=== PATIENT | male | born 1945 | race Caucasian/White ===

== ENCOUNTER 2023-11-09 11:36 | Day surgery (SDC) | payer OTHER, SELFPAY ==
--- NOTE | 2023-11-08 22:18 | W.PREOPHP ---
Assessment and Plan Assessment and plan (1) Posterior subcapsular age-related cataract, right eye: Status: Acute Assessment and plan: Assessment: Visually significant cataract, right eye. Plan: Cataract extraction with intraocular lens implant right eye (2) Nuclear age-related cataract, right eye: Status: Acute Assessment and plan: Assessment: Visually significant cataract, right eye. Plan: Cataract extraction with intraocular lens implant right eye History of Present Illness History of Present Illness Chief Complaint: Progressive decreased vision, both eyes Narrative: The patient is a 77-year-old male referred by the [facility] with bilateral cataracts, right eye worse than left. He notes progressive decreased vision in both eyes at both distance and near. He no longer drives because he feels he cannot see well enough. He was previously scheduled to have cataract surgery in [place], but this was too far to travel. 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 Review of Systems All systems reviewed & are unremarkable except as noted in HPI and below PFSH All Active Problems Posterior subcapsular age-related cataract, right eye (Acute) Nuclear age-related cataract, right eye (Acute) Medical History COPD (chronic obstructive pulmonary disease) Gout HTN (hypertension) Social History Smoking/Tobacco Use Status: Former Tobacco Use Smoking risk assessment performed?: Yes Alcohol Intake: current Alcohol type: beer Drug use: Never Substance use type: does not use Housing: house Do you feel safe at home: Yes (lives alone) Do you feel safe in your relationship?: Yes Meds Allergies and Home Medications Allergies Allergy/AdvReac Type Severity Reaction Status Date / Time No Known Allergies Allergy Verified 11/09/23 13:03 Home Medications Medication Instructions Recorded Confirmed Type albuterol sulfate 90 mcg/actuation 2 inh inhalation .q4-q6 PRN 11/08/23 11/09/23 History aerosol inhaler colchicine 0.6 mg capsule 0.6 mg PO DAILY 11/08/23 11/09/23 History fluticasone 250 mcg-salmeterol 50 1 inh inhalation DAILY 11/08/23 11/09/23 History mcg/dose blistr powdr for inhalation (Advair Diskus) hydrochlorothiazide 25 mg tablet 25 mg PO DAILY 11/08/23 11/09/23 History ipratropium 0.5 mg-albuterol 3 mg 3 ml inhalation TID PRN 11/08/23 11/09/23 History (2.5 mg base)/3 mL nebulization soln ipratropium 20 mcg-albuterol 100 1 puff inhalation QID 11/08/23 11/09/23 History mcg/actuation mist for inhalation prednisone 20 mg tablet 20 mg PO DIRECTED 11/08/23 11/09/23 History sildenafil 100 mg tablet 100 mg PO DAILY PRN 11/08/23 11/09/23 History sulfamethoxazole 800 1 tab PO DIRECTED 11/08/23 11/09/23 History mg-trimethoprim 160 mg tablet tiotropium bromide 2.5 2 inh inhalation DAILY 11/08/23 11/09/23 History mcg/actuation mist for inhalation Exam Eyes Other: Most recent ocular examination is significant for corrected visual acuity of counting fingers right eye, 20/60 left eye. Extraocular motility is normal. Intraocular pressure is 13 OD, 9 OS. Slit-lamp examination reveals an advanced posterior subcapsular cataract in the right eye with moderate nuclear cataract. In the left eye there is a central small circular opacity in the posterior capsule that appears to be almost posterior polar. There is also significant diffuse posterior subcapsular opacity os as well with moderate nuclear cataract. Funduscopic examination is unknown able to be performed in the right eye due to advanced cataract. In the left eye disc cupping appears to be 0.5. Macular pigmentary changes are present in the left eye. Peripheral retina and vitreous appears normal. Resp Auscultation: clear to auscultation bilaterally Cardio Rate: regular rate Rhythm: regular rhythm
[2023-11-09 12:31] VITALS: BP 163/87; PULSE 99; RESP 16; TEMP 36.3; O2SAT 93
--- NOTE | 2023-11-09 13:18 | W.ANESPRE ---
General Info Date of Service Date Performed: 11/09/23 Height: 5 ft 9 in Weight: 91.8 kg Body Mass Index (BMI): 29.9 Surgical Procedure: Operation Date: 11/09/23 15:40 Proposed Procedure Side Surgeon p Cataract Extraction with IOL Implant Right Gary Riddle MD Meds Allergies and Home Medications Allergies Allergy/AdvReac Type Severity Reaction Status Date / Time No Known Allergies Allergy Verified 11/09/23 13:03 Home Medication Medication Instructions Recorded albuterol sulfate 90 mcg/actuation 2 inh inhalation .q4-q6 PRN 11/08/23 aerosol inhaler colchicine 0.6 mg capsule 0.6 mg PO DAILY 11/08/23 fluticasone 250 mcg-salmeterol 50 1 inh inhalation DAILY 11/08/23 mcg/dose blistr powdr for inhalation (Advair Diskus) hydrochlorothiazide 25 mg tablet 25 mg PO DAILY 11/08/23 ipratropium 0.5 mg-albuterol 3 mg 3 ml inhalation TID PRN 11/08/23 (2.5 mg base)/3 mL nebulization soln ipratropium 20 mcg-albuterol 100 1 puff inhalation QID 11/08/23 mcg/actuation mist for inhalation prednisone 20 mg tablet 20 mg PO DIRECTED 11/08/23 sildenafil 100 mg tablet 100 mg PO DAILY PRN 11/08/23 sulfamethoxazole 800 1 tab PO DIRECTED 11/08/23 mg-trimethoprim 160 mg tablet tiotropium bromide 2.5 2 inh inhalation DAILY 11/08/23 mcg/actuation mist for inhalation Current Visit Medications: Current Medications Generic Name Dose Route Start Last Admin Trade Name Freq PRN Reason Stop Dose Admin Acetaminophen 1,000 mg 11/09/23 06:00 Acetaminophen 500 Mg Tab PO 12/09/23 05:59 Q4H PRN PRN Balanced Salt Solution 500 ml 11/09/23 06:00 Balanced Salt Soln.-Plus 500 Ml Bag OP 12/09/23 05:59 DIRECTED SHU Miscellaneous Medication 0 ml 11/09/23 06:00 Prednisolone 1%, Moxifloxacin 0.5%, Bromfenac 0.09% 5ml Btl OD 12/09/23 05:59 DIRECTED SHU Miscellaneous Medication 0 ml 11/09/23 06:00 11/09/23 12:54 Tropicam./Phenyleph. (1/2.5%) 10 Ml Btl OD 12/09/23 05:59 1 drp DIRECTED SHU Administration Tetracaine HCl 0 ml 11/09/23 06:00 Tetracaine 0.5% 4 Ml Btl OD 12/09/23 05:59 DIRECTED SHU PFSH Active Problems Active Problems: Problem Status Onset Code Posterior subcapsular age-related cataract, right eye H25.041 Nuclear age-related cataract, right eye H25.11 Medical History Medical History COPD (chronic obstructive pulmonary disease) Gout HTN (hypertension) Medical History Comments:: 11/09/23: pt reports he is claustrophobia; Tobacco Smoking/Tobacco Use Status: Former Tobacco Use Alcohol Alcohol Intake: current Alcohol type: beer Substance Use Substance use: Never Substance use type: does not use Vital Signs and Lab Results Vital Signs Most Recent Vital Signs in EMR: Most Recent Vital Signs Temp Pulse Resp BP Pulse Ox 36.3 C L 99 H 16 163/87 H 93 11/09/23 12:31 11/09/23 12:31 11/09/23 12:31 11/09/23 12:31 11/09/23 12:31 Lab Results Blood Type / Crossmatch: No Data to Display Complete Blood Count: No Data to Display Complete Metabolic Panel: No Data to Display Liver Function Panel: No Data to Display Coagulation Panel: No Data to Display Cardiac Panel: No Data to Display Arterial Blood Gas: No Data to Display Venous Blood Gas: No Data to Display Pancreas Panel: No Data to Display Thyroid Panel: No Data to Display Infectious Disease: No Data to Display Blood Cultures: No Data to Display Toxicology Panel: No Data to Display Anesthesia Assessment and Plan Anesthesia History Personal History: No History of General Anesthesia Family History: Family History Unknown Exercise Tolerance Exercise Tolerance: Metabolic Equivalents>4 Pertinent Negatives Pertinent Negatives: No Symptoms of GERD, No Major Cardiovascular Symptoms or Complaints and No History of CVA/TIA Cardiac & Pulmonary Exam Cardiac Exam: Normal S1/S2 Heart Sounds Pulmonary Exam: Clear Bilateral Breath Sounds Implantable Cardiac Device Does patient have a Pacemaker or an ICD?: No Airway Exam Known Difficult Airway: No Mallampati Class: 1 Mouth Opening: Normal (> 3cm) Thyromental Distance: Greater than 3 cm Neck Range of Motion: Full ROM Neck Circumference: Normal Teeth Condition: Removable Dentures/Plates Upper ASA Classification ASA Score: ASA 3 Emergency Case?: No NPO Status NPO Status: NPO Clears >2 hours, Solids >8 hours Anesthesia Plan Resuscitation Status: Full Code Anesthesia Technique: MAC Anesthesia Airway Planned: Natural Airway Monitors Used: Standard Monitors
[2023-11-09 13:23] VITALS: BMI 29.9
[2023-11-09] MEDS: Povidone-Iodine Ophth 30 ML BTL (13:55)
[2023-11-09] MEDS: Tetracaine 0.5% 4 ML BTL OD (13:55)
[2023-11-09] MEDS: Balanced Salt Soln.-PLUS 500 ML BAG OP (14:03)
[2023-11-09] MEDS: Duovisc Viscoelastic System EACH 1 EACH (14:03)
[2023-11-09] MEDS: Lidocaine 1% Pres-Free 5 ML VIAL (14:04)
[2023-11-09] MEDS: Trypan Blue 0.06% 0.5 ML SYR (14:07)
--- NOTE | 2023-11-09 14:37 | W.PM.DSUDISC ---
Date of service: 11/09/23 Time of Service: 14:37 Discharge Plan Disposition Patient Disposition: Home Discharge Details Attending Provider: Gary Riddle Primary Care Provider: Valeria,Local Home Meds and New Rx's Prescriptions: No Action ipratropium-albuterol 20-100 mcg/actuation mist 1 puff inhalation QID Rx Instructions: space evenly during waking hours ipratropium-albuterol 0.5 mg-3 mg(2.5 mg base)/3 mL solution for nebulization 3 ml inhalation TID PRN albuterol sulfate 90 mcg/actuation HFA aerosol inhaler 2 inh inhalation .q4-q6 PRN colchicine 0.6 mg capsule 0.6 mg PO DAILY fluticasone propion-salmeterol [Advair Diskus] 250-50 mcg/dose blister with device 1 inh inhalation DAILY hydrochlorothiazide 25 mg tablet 25 mg PO DAILY prednisone 20 mg tablet 20 mg PO DIRECTED Rx Instructions: days 11-21 of therapy sildenafil 100 mg tablet 100 mg PO DAILY PRN Rx Instructions: administer 30 minutes to 4 hours before activity sulfamethoxazole-trimethoprim 800-160 mg tablet 1 tab PO DIRECTED tiotropium bromide 2.5 mcg/actuation mist 2 inh inhalation DAILY Discharge Instructions Stand Alone Forms: [facility] Post-Op Marta Negrete ([facility]U) Discharge Orders Discharge Orders: Discharge Order (Routine); Ordered 11/09/23 Ordered By: Gary Riddle DS: Diagnosis Discharge Diagnosis (1) Posterior subcapsular age-related cataract, right eye: Status: Resolved (2) Nuclear age-related cataract, right eye: Status: Resolved
[2023-11-09 14:38] VITALS: BP 163/87; PULSE 99; RESP 16; TEMP 36.3; O2SAT 93
--- NOTE | 2023-11-09 14:39 | W.PM.OP ---
Date of service: 11/09/23 Time of Service: 14:39 Operative Note Operative Note DATE OF PROCEDURE: 11/09/23 PRE-OP DIAGNOSIS: Dense nuclear/posterior subcapsular cataract, right eye, ? Posterior polar cataract, right eye Absent red reflex, right eye POST-OP DIAGNOSIS: same PROCEDURE: Cataract extraction using phacoemulsification with intraocular lens implant, right eye SURGEON: Gary Riddle ANESTHESIA TYPE: Local By Surgeon and MAC Refer to Anesthesia Record ESTIMATED BLOOD LOSS: 0 PATHOLOGY: none sent COMPLICATIONS: None Patient was transported to: same day Patient's condition: stable Implants: Manny Clareon [id number] Indications: Progressive decreased vision due to cataract, right eye Procedure Description: CATARACT SURGERY OPERATIVE REPORT PREOPERATIVE DIAGNOSIS: Dense nuclear/posterior subcapsular cataract, possible posterior polar cataract, right eye Absent red reflex, right eye POSTOPERATIVE DIAGNOSIS: Same OPERATION: Cataract extraction using phacoemulsification with posterior chamber intraocular lens implant, right eye. IOL: IOL [employer] Manufacturer/Model: Manny Clareon [id number] IOL Power: + 22.5 diopters IOL Serial Number: [id number] Optic Diameter: 6.0mm Haptic/Overall Diameter: 13.0mm PHACO INFO: Manny AgileNanourion Vision System with OZil and Active Fluidics Cumulative Dispersed Energy (CDE): 18.90 seconds SURGEON: Gary Riddle MD, FRANKY ANESTHESIA: Monitored Anesthesia Care (MAC), with local sub-tenon's anesthetic infiltration COMPLICATIONS: None SPECIMENS: None INDICATIONS FOR PROCEDURE: The patient is a 77-year-old male with history of progressive decreased vision in his right eye secondary to the development of dense nuclear/posterior subcapsular cataract. He has previously been diagnosed with exudative macular degeneration in the right eye but declined intravitreal injections. No view of the retina is possible at this point due to the dense cataract. The option of cataract surgery was offered to the patient and he wished to proceed, understanding that postoperative visual acuity will be limited by the presence of his pre-existing maculopathy. See office notes for detailed information. PROCEDURE: The correct surgical eye was identified and marked as the right eye and the pupil was dilated in the preoperative area using mydriatics and cycloplegics. The dilated pupil size was 7.0 mm. The patient elected to proceed without oral sedation. The patient was brought to the operating room where cardiopulmonary monitoring was instituted and surgical time-out was performed, confirming the correct operative eye and IOL power. Topical anesthesia was administered and ophthalmic povidone-iodine 5% was instilled into the conjunctival fornices. The jacob-ocular area was prepped with Betadine 10% solution and draped in the usual sterile fashion for intraocular surgery, including an aperture drape. A Tegaderm transparent film dressing was cut in half and used to cover the lashes and lid margins. Care was taken to sequester the lashes and lid margins under the Tegaderm dressing. A lid speculum was placed between the lids of the operative eye and the Manny LuxOR Revalia operating microscope was maneuvered into position. Nel scissors were then used to make a conjunctival buttonhole approximately 6mm posterior to the limbus in the inferonasal quadrant. Blunt dissection was carried out to expose bare sclera, and a blunt-tipped sub-tenon?s anesthesia cannula was introduced and passed posteriorly along the globe where non-preserved plain lidocaine was injected into posterior sub-Tenon?s space. A sideport knife was used to make a paracentesis port. VisionBlue was injected into the anterior chamber and allowed to sit for 30 seconds. Intraocular phenylephrine/lidocaine was injected into the anterior chamber. The anterior chamber was then filled with viscoelastic. Dispersive viscoelastic was used initially. A keratome knife was used to construct a two--plane clear corneal tunnel extending 2.0mm into clear cornea. A flap was raised on the anterior capsule and capsulorhexis forceps were used to complete a continuous curvilinear capsulorhexis of 5.5 mm. No [place] dissection was performed. A deep groove was sculpted into the central nucleus, and then nuclear [place] delineation was performed through the travis of the groove. The nucleus was then gently cracked into 2 halves and each half was teased into the anterior chamber where it was carefully phacoemulsification. Dispersive viscoelastic was then used to Viscoat dissect epinuclear shallow in each quadrant. The irrigation/aspiration handpiece was then used to remove the epi nuclear shell and then carefully remove the cortex, leaving the central posterior capsule for the last. Fortunately, no posterior capsule defect was evident.. The capsular bag was then inflated and the anterior chamber deepened with cohesive viscoelastic. The lens implant described above was inserted into the capsular bag using the Manny Autonome Injector. A Kuglen hook was used to dial the IOL into position. Residual viscoelastic was then removed first from posterior to the IOL, then from the anterior chamber using the I/A handpiece. The lens implant was noted to center nicely within the capsular bag. The incisions were stromally hydrated, and the anterior chamber was reformed using BSS. Then 0.5cc of moxifloxacin 1.0mg/ml were injected into the capsular bag and anterior chamber. The incisions were checked with a Weck spear and found to be secure. Several drops of ophthalmic povidone-iodine 5% were then applied to the eye followed by two drops of combination steroid/NSAID/antibiotic solution. The drapes were removed and a clear plastic protective eye shield was placed over the eye. The patient was then returned to Same Day Surgery in stable condition.
--- NOTE | 2023-11-09 14:41 | W.ANESPOSTOP ---
Postoperative Evaluation Date, Time and Location Date Performed: 11/09/23 Time Performed: 14:41 Patient Location: Day Surgery Unit Vital Signs Most Recent Imported Vital Signs: Most Recent Vital Signs Temp Pulse Resp BP Pulse Ox 36.3 C L 99 H 16 163/87 H 93 11/09/23 14:38 11/09/23 14:38 11/09/23 14:38 11/09/23 14:38 11/09/23 14:38 Pain Score Most Recent Pain Score: Most Recent Pain Score Pain Level 0 11/09/23 14:38 Assessment Mental Status: Awake (Alert & Oriented to Patient Baseline) Airway and Respiratory Function: Patent airway with normal (patient baseline) respiratory exam Cardiovascular Function: Hemodynamically Stable Hydration Status: Adequately Hydrated Nausea & Vomiting: No Nausea or Vomiting Pain: Pt. Denies Any Pain Peripheral Nerve Block: Patient did not receive a nerve block
== END 2023-11-09 14:55 | disposition home or self-care (01) ==
PROVIDERS: Visit Provider Ophthalmology
PROC: (CPT 66984; principal; 2023-11-09 15:30)
DX: H25.041 Posterior subcapsular polar age-related cataract, right eye (principal); H25.11 Age-related nuclear cataract, right eye; I10 Essential (primary) hypertension; H53.31 Abnormal retinal correspondence
CPT/HCPCS: 66984; 00123; V2632; J2003

== ENCOUNTER 2024-02-08 07:55 | Day surgery (SDC) | payer OTHER, SELFPAY ==
--- NOTE | 2024-02-08 06:42 | HPE_ITS ---
Assessment and Plan Assessment and plan (1) Posterior subcapsular age-related cataract of left eye: Status: Acute Assessment and plan: Assess: Visually significant cataract of the left eye. Plan: Cataract extraction with lens implantation of the left eye. (2) Nuclear age-related cataract, left eye: Status: Acute Assessment and plan: Assessment: Visually significant cataract of the left eye. Plan: Cataract extraction with lens implantation of the left eye. History of Present Illness History of Present Illness Chief Complaint: Progressive decreased vision, left eye Narrative: The patient is a 78-year-old male who originally presented in 2022 with complaints of progressive vision in both eyes at both distance and near, right eye worse than left. He has significant difficulty driving at night due to gla re, and has actually given up driving at night. He has to use a magnifying glass to read. This has been progressive over the past 2 years. He also has a history of exudative ARMD of the right eye, nonexudative ARMD of the left eye. He underwent cataract surgery in the right eye on 11/09/2023. He now presents for cataract surgery of the left eye. Review of Systems All systems reviewed & are unremarkable except as noted in HPI and below PFSH All Active Problems Posterior subcapsular age-related cataract of left eye (Acute) Nuclear age-related cataract, left eye (Acute) Medical History COPD (chronic obstructive pulmonary disease) Gout HTN (hypertension) Social History Smoking/Tobacco Use Status: Former Tobacco Use Quit Date: 06/18/98 Smoking risk assessment performed?: Yes Alcohol Intake: current Alcohol Intake frequency: a few times a week Alcohol type: beer Drug use: Never Substance use type: does not use Housing: house Do you feel safe at home: Yes (lives alone) Do you feel safe in your relationship?: Yes Meds Allergies and Home Medications Allergies Allergy/AdvReac Type Severity Reaction Status Date / Time No Known Allergies Allergy Verified 02/08/24 08:40 Home Medications ?Medication ?Instructions ?Recorded ?Confirmed ?Type albuterol sulfate 90 mcg/actuation 2 inh inhalation .q4-q6 PRN 11/08/23 02/08/24 History aerosol inhaler colchicine 0.6 mg capsule 0.6 mg PO DAILY 11/08/23 02/08/24 History fluticasone 250 mcg-salmeterol 50 1 inh inhalation DAILY 11/08/23 02/08/24 History mcg/dose blistr powdr for inhalation (Advair Diskus) hydrochlorothiazide 25 mg tablet 25 mg PO DAILY 11/08/23 02/08/24 History ipratropium 0.5 mg-albuterol 3 mg 3 ml inhalation TID PRN 11/08/23 02/08/24 History (2.5 mg base)/3 mL nebulization soln ipratropium 20 mcg-albuterol 100 1 puff inhalation QID 11/08/23 02/08/24 History mcg/actuation mist for inhalation prednisone 20 mg tablet 20 mg PO DIRECTED 11/08/23 02/08/24 History sildenafil 100 mg tablet 100 mg PO DAILY PRN 11/08/23 02/08/24 History sulfamethoxazole 800 1 tab PO DIRECTED 11/08/23 02/08/24 History mg-trimethoprim 160 mg tablet tiotropium bromide 2.5 2 inh inhalation DAILY 11/08/23 02/08/24 History mcg/actuation mist for inhalation Exam Eyes Other: Ophthalmic examination reveals corrected visual acuity of counting fingers right eye, 20/70 left eye. Extract motility is normal. Intraocular pressure is 13 OD, 9 OS. Slit-lamp examination reveals a well-positioned PCIOL OD with clear posterior capsule. Left eye shows moderate nuclear with severe posterior subcapsular cataract. Funduscopic examination reveals disc cupping of 0.5 OU. Central pigmentary changes are present in the right macula. A subfoveal PED is noted. In the left eye drusen and pigmentary changes are present. Resp Auscultation: clear to auscultation bilaterally Cardio Rate: regular rate Rhythm: regular rhythm
--- NOTE | 2024-02-08 07:51 | W.ANESPRE ---
General Info Date of Service Date Performed: 02/08/24 Height: 5 ft 9 in Weight: 91.8 kg Body Mass Index (BMI): 29.9 Surgical Procedure: Operation Date: 02/08/24 10:40 Proposed Procedure Side Surgeon p Cataract Extraction with IOL Implant Left Gary Riddle MD Meds Allergies and Home Medications Allergies Allergy/AdvReac Type Severity Reaction Status Date / Time No Known Allergies Allergy Verified 02/08/24 08:40 Home Medication ?Medication ?Instructions ?Recorded albuterol sulfate 90 mcg/actuation 2 inh inhalation .q4-q6 PRN 11/08/23 aerosol inhaler colchicine 0.6 mg capsule 0.6 mg PO DAILY 11/08/23 fluticasone 250 mcg-salmeterol 50 1 inh inhalation DAILY 11/08/23 mcg/dose blistr powdr for inhalation (Advair Diskus) hydrochlorothiazide 25 mg tablet 25 mg PO DAILY 11/08/23 ipratropium 0.5 mg-albuterol 3 mg 3 ml inhalation TID PRN 11/08/23 (2.5 mg base)/3 mL nebulization soln ipratropium 20 mcg-albuterol 100 1 puff inhalation QID 11/08/23 mcg/actuation mist for inhalation prednisone 20 mg tablet 20 mg PO DIRECTED 11/08/23 sildenafil 100 mg tablet 100 mg PO DAILY PRN 11/08/23 sulfamethoxazole 800 1 tab PO DIRECTED 11/08/23 mg-trimethoprim 160 mg tablet tiotropium bromide 2.5 2 inh inhalation DAILY 11/08/23 mcg/actuation mist for inhalation Current Visit Medications: Current Medications Generic Name Dose Route Start Last Admin Trade Name Freq PRN Reason Stop Dose Admin Acetaminophen 1,000 mg 02/08/24 06:00 Acetaminophen 500 Mg Tab PO 03/09/24 05:59 Q4H PRN PRN Balanced Salt Solution 500 ml 02/08/24 06:00 Balanced Salt Soln.-Plus 500 Ml Bag OP 03/09/24 05:59 DIRECTED [facility] Miscellaneous Medication 0 ml 02/08/24 06:00 Prednisolone 1%, Moxifloxacin 0.5%, Bromfenac 0.09% 5.6ml Btl OS 03/09/24 05:59 DIRECTED [facility] Miscellaneous Medication 0 ml 02/08/24 06:00 Tropicam./Phenyleph. (1/2.5%) 10 Ml Btl OS 03/09/24 05:59 DIRECTED [facility] Tetracaine HCl 0 ml 02/08/24 06:00 Tetracaine 0.5% 4 Ml Btl OS 03/09/24 05:59 DIRECTED [facility] PFSH Active Problems Active Problems: Problem Status Onset Code Posterior subcapsular age-related cataract of left eye Acute H25.042 Nuclear age-related cataract, left eye Acute H25.12 Posterior subcapsular age-related cataract, right eye Resolved H25.041 Nuclear age-related cataract, right eye Resolved H25.11 Medical History Medical History COPD (chronic obstructive pulmonary disease) Gout HTN (hypertension) Tobacco Smoking/Tobacco Use Status: Former Tobacco Use Alcohol Alcohol Intake: current Alcohol intake frequency: a few times a week Alcohol type: beer Substance Use Substance use: Never Substance use type: does not use Vital Signs and Lab Results Vital Signs Most Recent Vital Signs in EMR: Temp Pulse Resp BP Pulse Ox 36.4 C L 86 20 158/88 H 93 02/08/24 08:48 02/08/24 08:48 02/08/24 08:48 02/08/24 08:48 02/08/24 08:48 Lab Results Blood Type / Crossmatch: No Data to Display Complete Blood Count: No Data to Display Complete Metabolic Panel: No Data to Display Liver Function Panel: No Data to Display Coagulation Panel: No Data to Display Cardiac Panel: No Data to Display Arterial Blood Gas: No Data to Display Venous Blood Gas: No Data to Display Pancreas Panel: No Data to Display Thyroid Panel: No Data to Display Infectious Disease: No Data to Display Blood Cultures: No Data to Display Toxicology Panel: No Data to Display Anesthesia Assessment and Plan Anesthesia History Personal History: No History of Anesthesia Complications Family History: Family History Unknown Exercise Tolerance Exercise Tolerance: Metabolic Equivalents>4 Pertinent Negatives Pertinent Negatives: No Symptoms of GERD, No Major Cardiovascular Symptoms or Complaints and No History of CVA/TIA Cardiac & Pulmonary Exam Cardiac Exam: Normal S1/S2 Heart Sounds Pulmonary Exam: Clear Bilateral Breath Sounds Implantable Cardiac Device Does patient have a Pacemaker or an ICD?: No Airway Exam Known Difficult Airway: No Mallampati Class: 1 Mouth Opening: Normal (> 3cm) Thyromental Distance: Greater than 3 cm Neck Range of Motion: Full ROM Neck Circumference: Normal Teeth Condition: Removable Dentures/Plates Upper ASA Classification ASA Score: ASA 3 Emergency Case?: No NPO Status NPO Status: NPO Clears >2 hours, Solids >8 hours Anesthesia Plan Resuscitation Status: Full Code Anesthesia Technique: MAC Anesthesia Airway Planned: Natural Airway Monitors Used: Standard Monitors Preoperative Comments:: Preop RN noted some irregularity on auscultation. 3-lead showed PVCs and possibly a new RBBB, not noted on his history. I have ordered a 12-lead for full clarity. I did let the patient know there is the possibility of postponing today.
[2024-02-08 08:48] VITALS: BP 158/88; PULSE 86; RESP 20; TEMP 36.4; O2SAT 93
--- NOTE | 2024-02-08 09:15 | RT.EKG_ITS ---
APPROVED REPORT Exam: Resting ECG Reason for Exam: possible new bundle branch block Patient Location: O HR:82 bpm ECG Measurements Heart Rate 82 AXIS MI 208 P 19 QRSd 110 QRS -39 QT 383 T -25 QTc 448 Conclusion Sinus rhythm...normal P axis, V-rate 60- 99 Inferior infarct, old...Q >35mS, II III aVF
[2024-02-08 09:23] VITALS: BMI 29.9
[2024-02-08] MEDS: Tetracaine 0.5% 4 ML BTL OS (10:00)
[2024-02-08] MEDS: Povidone-Iodine Ophth 30 ML BTL (10:00)
[2024-02-08] MEDS: Balanced Salt Soln.-PLUS 500 ML BAG OP (10:08)
[2024-02-08] MEDS: Lidocaine 1% Pres-Free 5 ML VIAL (10:08)
[2024-02-08] MEDS: Duovisc Viscoelastic System EACH 1 EACH (10:08)
[2024-02-08] MEDS: Prednisolone 1%, Moxifloxacin 0.5%, Bromfenac 0.09% 5.6ML BTL OS (10:30)
[2024-02-08 10:35] VITALS: BP 158/82; PULSE 82; RESP 20; TEMP 36.7; O2SAT 95
--- NOTE | 2024-02-08 10:35 | W.PM.DSUDISC ---
Date of service: 02/08/24 Time of Service: 10:36 Discharge Plan Disposition Patient Disposition: Home Discharge Details Attending Provider: Gary Riddle Primary Care Provider: Valeria,Local Home Meds and New Rx's Prescriptions: No Action ipratropium-albuterol 20-100 mcg/actuation mist 1 puff inhalation QID Rx Instructions: space evenly during waking hours ipratropium-albuterol 0.5 mg-3 mg(2.5 mg base)/3 mL solution for nebulization 3 ml inhalation TID PRN albuterol sulfate 90 mcg/actuation HFA aerosol inhaler 2 inh inhalation .q4-q6 PRN colchicine 0.6 mg capsule 0.6 mg PO DAILY fluticasone propion-salmeterol [Advair Diskus] 250-50 mcg/dose blister with device 1 inh inhalation DAILY hydrochlorothiazide 25 mg tablet 25 mg PO DAILY prednisone 20 mg tablet 20 mg PO DIRECTED Rx Instructions: days 11-21 of therapy sildenafil 100 mg tablet 100 mg PO DAILY PRN Rx Instructions: administer 30 minutes to 4 hours before activity sulfamethoxazole-trimethoprim 800-160 mg tablet 1 tab PO DIRECTED tiotropium bromide 2.5 mcg/actuation mist 2 inh inhalation DAILY Discharge Instructions Stand Alone Forms: [facility] Post-Op CataractMarta (DSU) Discharge Orders Discharge Orders: Discharge Order (Routine); Ordered 02/08/24 Ordered By: Gary Riddle DS: Diagnosis Discharge Diagnosis (1) Posterior subcapsular age-related cataract of left eye: Status: Resolved (2) Nuclear age-related cataract, left eye: Status: Resolved
--- NOTE | 2024-02-08 10:36 | ROE_ITS ---
Date of service: 02/08/24 Time of Service: 10:36 Operative Note Operative Note DATE OF PROCEDURE: 02/08/24 PRE-OP DIAGNOSIS: Dense nuclear/posterior subcapsular cataract, left eye, ? posterior polar cataract POST-OP DIAGNOSIS: same PROCEDURE: Cataract extraction using phacoemulsification with intraocular lens implant, left eye SURGEON: Gary Riddle ANESTHESIA TYPE: Local By Surgeon and MAC Refer to Anesthesia Record PATHOLOGY: none sent COMPLICATIONS: None Patient was transported to: same day Patient's condition: stable Implants: Manny Clareon [id number] Indications: Progressive decreased vision due to cataract, left eye Procedure Description: CATARACT SURGERY OPERATIVE REPORT PREOPERATIVE DIAGNOSIS: Dense nuclear/posterior subcapsular cataract, left eye, ? posterior polar cataract POSTOPERATIVE DIAGNOSIS: Same OPERATION: Cataract extraction using phacoemulsification with posterior chamber intraocular lens implant, left eye. IOL: IOL Torch Straightener/Model: Manny Clareon [id number] IOL Power: + 21.0 diopters IOL Serial Number: [id number] Optic Diameter: 6.0mm Haptic/Overall Diameter: 13.0mm PHACO INFO: Manny [employer]urion Vision System with OZil and Active [employer]uidics Cumulative Dispersed Energy (CDE): 15.62 seconds SURGEON: Gary Riddle MD, FRANKY ANESTHESIA: Monitored Anesthesia Care (MAC), with local sub-tenon's anesthetic infiltration COMPLICATIONS: None SPECIMENS: None INDICATIONS FOR PROCEDURE: The patient is a 78-year-old male with history of significant bilateral nuclear/posterior subcapsular cataracts, as well as exudative ARMD of the right eye, nonexudative ARMD of the left eye. Cataracts appear to be posterior polar in nature. He has already undergone cataract surgery in the right eye, but postoperative vision is limited by the presence of his pre-existing exudative maculopathy. He now presents for cataract surgery of the left eye. See office notes for detailed information. PROCEDURE: The correct surgical eye was identified and marked as the left eye and the pupil was dilated in the preoperative area using mydriatics and cycloplegics. The dilated pupil size was 6.0 mm. The patient elected to proceed without oral sedation. The patient was brought to the operating room where cardiopulmonary monitoring was instituted and surgical time-out was performed, confirming the correct operative eye and IOL power. Topical anesthesia was administered and ophthalmic povidone-iodine 5% was instilled into the conjunctival fornices. The jacob-ocular area was prepped with Betadine 10% solution and draped in the usual sterile fashion for intraocular surgery, including an aperture drape. A Tegaderm transparent film dressing was cut in half and used to cover the lashes and lid margins. Care was taken to sequester the lashes and lid margins under the Tegaderm dressing. A lid speculum was placed between the lids of the operative eye and the Manny Lux[employer] Revalia operating microscope was maneuvered into position. Nel scissors were then used to make a conjunctival buttonhole approximately 6mm posterior to the limbus in the inferonasal quadrant. Blunt dissection was carried out to expose bare sclera, and a blunt-tipped sub-tenon?s anesthesia cannula was introduced and passed posteriorly along the globe where non- preserved plain lidocaine was injected into posterior sub-Tenon?s space. A sideport knife was used to make a paracentesis port. [place] blue was injected into the anterior chamber and left to sit for 40 to 45 seconds. Intraocular phenylephrine/lidocaine was injected into the anterior chamber. The anterior chamber was then filled with viscoelastic. A keratome knife was used construct a two-plane clear corneal tunnel extending 2.0mm into clear cornea. A flap was raised on the anterior capsule and capsulorhexis forceps were used to complete a continuous curvilinear capsulorhexis of 5.0 mm. No [place] dissection was undertaken. A deep central groove was sculpted into the lens nucleus, and then [place] delineation was performed in the groove. The nucleus was cracked into 2 halves, and each central nuclear half was subchopped into multiple smaller fragments and emulsified at the iris plane. The epi nuclear shell was then carefully removed. No posterior polar defect in the capsule was evident.. Residual cortical material was removed using the irrigation/aspiration handpiece. . The capsular bag was then inflated and the an terior chamber deepened with viscoelastic. The lens implant described above was inserted into the capsular bag using the Manny Autonome Injector. A Kuglen hook was used to dial the IOL into position. Residual viscoelastic was then removed first from posterior to the IOL, then from the anterior chamber using the I/A handpiece. The lens implant was noted to center nicely within the capsular bag. The incisions were stromally hydrated, and the anterior chamber was reformed using BSS. Then 0.5cc of moxifloxacin 1.0mg/ml were injected into the capsular bag and anterior chamber. The incisions were checked with a Weck spear and found to be secure. Several drops of ophthalmic povidone-iodine 5% were then applied to the eye followed by two drops of combination steroid/NSAID/antibiotic solution. The drapes were removed and a clear plastic protective eye shield was placed over the eye. The patient was then returned to Same Day Surgery in stable condition.
--- NOTE | 2024-02-08 10:48 | W.ANESPOSTOP ---
Postoperative Evaluation Date, Time and Location Date Performed: 02/08/24 Time Performed: 10:48 Patient Location: Day Surgery Unit Vital Signs Most Recent Imported Vital Signs: Most Recent Vital Signs Temp Pulse Resp BP Pulse Ox 36.7 C 82 20 158/82 H 95 02/08/24 10:35 02/08/24 10:35 02/08/24 10:35 02/08/24 10:35 02/08/24 10:35 Pain Score Most Recent Pain Score: Most Recent Pain Score Pain Level 0 02/08/24 10:35 Assessment Mental Status: Awake (Alert & Oriented to Patient Baseline) Airway and Respiratory Function: Patent airway with normal (patient baseline) respiratory exam Cardiovascular Function: Hemodynamically Stable Hydration Status: Adequately Hydrated Nausea & Vomiting: No Nausea or Vomiting Pain: Pt. Denies Any Pain Peripheral Nerve Block: Patient did not receive a nerve block
== END 2024-02-08 10:50 | disposition home or self-care (01) ==
LOC: SUR 07:55
PROVIDERS: Visit Provider Ophthalmology
PROC: (CPT 66984; principal; 2024-02-08 10:30)
DX: H25.042 Posterior subcapsular polar age-related cataract, left eye (principal); H25.12 Age-related nuclear cataract, left eye; Z98.41 Cataract extraction status, right eye
CPT/HCPCS: 66984; 00123; V2632; 93005; 93010; J2003